=== PATIENT | female | born 1995 | race Two or more races ===

== ENCOUNTER 2024-07-04 06:40 | Outpatient (CLI) | payer OTHER ==
[2024-07-04 08:21] LABS: HEMATOCRIT 26.1 % (36.0-45.00); MEAN CELL VOLUME 65.7 fL (80.00-100.00); MEAN CORPUSCULAR HEMOGLOBIN 20.1 pg (27.00-32.0); MEAN CORPUSCULAR HGB CONC 30.6 g/dl (32.0-36.0); PLATELET COUNT 236 K/uL (150-450); RED BLOOD COUNT 3.98 M/uL (4.00-6.00); RED CELL DISTRIBUTION WIDTH 16.9 % (11.5-14.5)
== END 2024-07-04 06:44 | disposition home or self-care (01) ==
LOC: LAB 06:40
DX: R69 Illness, unspecified (principal)

== ENCOUNTER 2024-07-05 06:19 | Day surgery (SDC) | payer OTHER ==
[2024-06-29 10:03] LABS: PH,URINE 7.5 (5.0-8.0); URINE APPEARANCE Clear; URINE BILIRRUBIN Negative (NEGATIVE); URINE BLOOD Negative; URINE COLOR Yellow; URINE GLUCOSE Negative (NEGATIVE); URINE KETONE Negative (NEGATIVE); URINE LEUKOCYTE Trace; URINE NITRATE Negative; URINE PROTEIN Negative (NEGATIVE); URINE UROBILINOGEN 0.2 E.U./dl
[2024-06-29 10:04] LABS: URINE EPITHELIAL CELLS 43.2 uL (0.0-38.8); URINE RBC 2.5 uL (0.0-20.8); URINE WBC 10.7 uL (0.0-23.2)
[2024-06-29 10:05] LABS: URINE CAST 0.14 uL (0.0-1.40)
[2024-06-29 10:17] VITALS: BP 112/76
[2024-06-29 10:18] LABS: HEMATOCRIT 26.5 % (36.0-45.00); MEAN CORPUSCULAR HGB CONC 30.6 g/dl (32.0-36.0); PLATELET COUNT 222 K/uL (150-450); RED CELL DISTRIBUTION WIDTH 17.1 % (11.5-14.5)
[2024-06-29 10:24] LABS: HEMOGLOBIN 8.1 g/dL (12.0-15.00); MEAN CORPUSCULAR HEMOGLOBIN 20.2 pg (27.00-32.0)
[2024-06-29 10:25] LABS: MEAN CELL VOLUME 66.2 fL (80.00-100.00)
[2024-06-29 10:53] LABS: INR 1.05; PARTIAL THROMBOPLASTIN TIME 27.6 SECONDS (22.0-34.0); PROTHROMBIN TIME 11.4 SECONDS (9.0-11.5)
[2024-06-29 11:00] LABS: ALBUMIN 3.7 gm/dL (3.4-5.0); BILIRUBIN TOTAL 0.8 mg/dL (0.3-1.2); CALCIUM 9.2 mg/dL (8.5-10.1); CREATININE SERUM 0.52 mg/dL (0.55-1.02); GFR 139.41; GLOBULINA 3.3 G/DL (2.4-3.5); POTASSIUM 4.53 mEq/L (3.5-5.1)
[~2024-07-05] VITALS: Ht 162.6 cm; Wt 68.0 kg
[2024-07-05] MEDS ORDERED: BUPIVACAINE HCL 30 ML VIAL IJ ONE (11:30)
[2024-07-05] MEDS ORDERED: CEFAZOLIN SODIUM 1,000 MG VIAL IV ONE (11:30)
[2024-07-05] MEDS ORDERED: CEFAZOLIN SODIUM 1,000 MG VIAL IV SCH ×2 (12:15→12:45)
[2024-07-05] MEDS ORDERED: FAMOTIDINE/PF 20 MG/10 ML SYRINGE IV SCH ×2 (12:15→12:45)
[2024-07-05] MEDS ORDERED: MORPHINE SULFATE 4 MG/ML VIAL IV ONE ×2 (12:45→13:25)
== END 2024-07-05 17:05 | disposition home or self-care (01) ==
LOC: CIR.AMB 06:19
PROVIDERS: ATTEND Specialist
DX: K80.10 Calculus of gallbladder with chronic cholecystitis without obstruction (principal); J45.909 Unspecified asthma, uncomplicated; Z91.013 Allergy to seafood